=== PATIENT | female | born 1960 | race Caucasian/White ===

== ENCOUNTER → 2023-05-10 | Outpatient (CLI) | payer BC ==
--- NOTE | 2023-05-10 15:39 | XR ---
EXAMINATION TYPE: XR Hip Limited LT DATE OF EXAM: 05/10/2023 3:35 PM INDICATION: Patient age:Female; 62 years old; Reason for study: M25.552 Pain left hip M51.26 Other DDD; PHH. COMPARISON: None. TECHNIQUE: The left hip was examined in the frontal and lateral projections. FINDINGS: No evidence of any acute osseous pathology, joint dislocation, or soft tissue swelling. Mil d medial joint space narrowing with acetabular sclerosis and marginal osteophytosis of the left hip. IMPRESSION: 1. No acute osseous pathology. 2. Mild osteoarthritic changes of the left hip.
--- NOTE | 2023-05-10 15:41 | XR ---
EXAMINATION TYPE: XR lumbar spine 2 or 3V DATE OF EXAM: 05/10/2023 CLINICAL HISTORY: pain TECHNIQUE: AP, lateral, and spot L5-S1 lateral coned in view of the lumbar spine. COMPARISON: None. FINDINGS: There are 5 lumbar type vertebral bodies identified. The lumbar spine shows satisfactory alignment w ithout evidence of acute fracture or dislocation. Vertebral body heights are within normal limits. Mild multilevel disc space narrowing with endplate sclerosis and anterior osteophytosis. Most promine nt at L5-S1. Facet arthropathy L5-S1. The overlying soft tissue appears unremarkable. IMPRESSION: 1. No acute fracture. 2. Mild multilevel degenerative disc disease and facet arthropathy.
== END | disposition home or self-care (01) ==
LOC: RADXRMAIN 15:01
PROVIDERS: ATTEND Family Medicine
DX: M25.552 Pain in left hip (principal); M51.26 Other intervertebral disc displacement, lumbar region; M16.12 Unilateral primary osteoarthritis, left hip; M47.816 Spondylosis without myelopathy or radiculopathy, lumbar region; M51.36 Other intervertebral disc degeneration, lumbar region
CPT/HCPCS: 72100; 73501

== ENCOUNTER 2024-03-28 11:19 | Day surgery (SDC) | payer MEDICARE ==
[2024-03-26 12:14] VITALS: BMI 21.4
[2024-03-28 12:38] VITALS: TEMP 97.7
[2024-03-28] MEDS: IV FLUID CONTINUATION 1,000 ML IV ONE (12:38)
[2024-03-28] MEDS: LACTATED RINGERS 1,000 ML IV SCH (12:54)
[2024-03-28] MEDS ORDERED: LIDOCAINE 1% INJ 10MG/ML (20 ML MDV) ONE (13:36)
[2024-03-28] MEDS ORDERED: PROPOFOL 10 MG/ML 20 ML VIAL IV ONE (13:36)
--- NOTE | 2024-03-28 13:55 | P.PCN ---
Date of Procedure: 03/28/24 Procedure(s) Performed: BRIEF HISTORY: Patient is a 63-year-old pleasant white female scheduled for an elective colonoscopy as a part of evaluation for history of colon polyps. Last colonoscopy was 3 years ago and according to the patient she had 3 polyps all of which were adenomas. PROCEDURE PERFORMED: Colonoscopy with biopsy. PREOPERATIVE DIAGNOSIS: History of colon polyps. IV sedation per Anesthesia. PROCEDURE: After informed consent was obtained, the patient, was brought into the endoscopy unit. IV sedation was administered by Anesthesia under continuous monitoring. Digital rectal examination was normal. Initially the Olympus CF-160 flexible video colonoscope was then inserted in the rectum, gradually advanced into the cecum without any difficulty. Careful examination was performed as the scope was gradually being withdrawn. Ileocecal valve and the appendiceal orifice were visualized and appeared normal. Prep was excellent. Mucosa of the cecum, ascending colon, transverse colon, descending colon, normal. The sigmoid colon there was a 4 mm polyp that was removed by cold biopsy. Rest of the sigmoid colon, and rectum appeared normal. Retroflexion was performed in the rectum and no lesions were seen. The patient tolerated the procedure well. IMPRESSION: 4 mm sigmoid colon polyp status post cold biopsy Rest of the colon appeared normal RECOMMENDATIONS: Findings of this examination were discussed with the patient as well as her family. She was advised to follow-up with the biopsy results and have repeat colonoscopy in 5 years..
[2024-03-28 14:14] VITALS: BP 105/57; PULSE 66; RESP 16
== END 2024-03-28 14:34 | disposition home or self-care (01) ==
LOC: ORWHC2ENDO 11:19
PROVIDERS: ATTEND Internal Medicine Gastroenterology
DX: Z12.11 Encounter for screening for malignant neoplasm of colon
CPT/HCPCS: 45380; 88305